=== PATIENT | female | born 1940 | race Caucasian/White ===

== ENCOUNTER 2023-10-03 15:40 | Emergency (ER) | payer MEDICARE, BC, SELFPAY ==
[2023-10-03 15:42] VITALS: BP 174/78
--- NOTE | 2023-10-03 16:16 | ED.GENMED ---
History of Present Illness
General
Chief Complaint: Head Injury
Source: patient
Exam Limitations: none
Time Seen by Provider: 10/03/23 16:01
History of Present Illness
History of Present Illness:
Patient had the trunk of a car fall and hit her head yesterday. Occurred about 1 PM. No LOC. Some mild bleeding. Last tetanus is less than 5. Patient realized that being on Eliquis she should be checked and presents today for evaluation. No
general headache no nausea or vomiting no neck pain no other
Past History
Past History
ED Past Medical History: Arrthythmia and HTN
ED Past Surgical History: Cholecystectomy, and Other (Splenectomy. Hernia)
Review of Systems
Review of Systems
All Other Systems: Not applicable
Neurological: Denies dizzy, headache, weakness or numbness
Phy Exam
Physical Exam
Physical Exam:
GENERAL: Alert and oriented in no apparent distress. 2 cm scalp laceration at the top of her head. Well scabbed and well-healing. No open wound. No drainage
EYE: Orbits normal.
NECK: Supple, nontender
ENT: TMs clear no blood
LUNGS: No respiratory distress
NEUROLOGICAL: Alert and oriented , grossly non-focal
SKIN: Warm and dry
PSYCH: Normal and appropriate interaction.
Course
Orders/Labs/Results
Orders:
Orders
10/03/23 15:47
CT Head W/o Iv Contrast Urgent
Comment: item fell on top of head, pt on eliquis
Reason For Exam: head injury to top of head
Vital Signs
Initial and Last Documented VS:
Initial Vital Signs
Temp Pulse Resp BP Pulse Ox
98.6 F 63 18 174/78 96
10/03/23 15:42 10/03/23 15:42 10/03/23 15:42 10/03/23 15:42 10/03/23 15:42
Last Documented Vital Signs
Temp Pulse Resp BP Pulse Ox
98.6 F 63 18 174/78 96
10/03/23 15:42 10/03/23 15:42 10/03/23 15:42 10/03/23 15:42 10/03/23 15:42
*Radiology
Radiology exam reviewed: preliminary read by ED provider (Negative CT) and radiology read reviewed (Negative CT)
*Pulse Oximetry
Patient hypoxic: no
*Critical Care Note
Total Time (30-74mins, 75-104mins- exclusive of procedures): Not Applicable
ED Attending Note
-
Portions of this chart may have been created with voice recognition software.� Occasional wrong word or��sound alike� substitutions may have occurred due to the inherent limitations of voice recognition software.
Discharge Plan
Departure
Patient Disposition: Home (Routine Discharge)
Date of Disposition: 10/03/23
Time of Disposition: 16:38
Patient with high blood pressure during this ER visit?: Yes
Discharge Problem:
Head injury/anticoagulated, Scalp laceration
Instructions: Head Injury in Adults (DC), Wound Care ED, BLOOD PRESSURE
Prescriptions:
No Action
lisinopril 10 MG tablet
10 mg PO DAILY
metoprolol tartrate 50 MG tablet
50 mg PO BID
digoxin 0.125 MG tablet
0.125 mg PO DAILY
aspirin 81 MG tablet,delayed release (DR/EC)
81 mg PO DAILY
[id number] serr [Osteo Bi-Flex (5-Loxin)] 1 EACH tablet
1 tab PO DAILY
multivitamin with folic acid [Tab-A-Emma] 1 TABLET tablet
1 tab PO DAILY
doxycycline hyclate 100 MG capsule
100 mg PO Q12 10 Days Qty: 20 0RF
cephalexin 500 MG capsule
1,000 mg PO QID 10 Days Qty: 80 0RF
acetaminophen 325 MG tablet
650 mg PO Q6HPRN PRN (Reason: mild/leg pain/WILDER/temp> 100.4F) Qty: 90 0RF
tramadol 50 MG tablet
25 mg PO Q6HPRN PRN (Reason: moderate pain) Qty: 10 0RF
metformin 500 MG tablet
500 mg PO DAILY Qty: 30 0RF
Referrals:
[facility] [Family Provider] - Follow up in 2-3 days
Interventions
Interventions:
*General Assessment Last Done: 10/03/23 15:42
*Neglect/Abuse Screening Last Done: 10/03/23 15:42
*Nursing Disposition Last Done: 10/03/23 16:51
ED- Neurological Assessment Last Done: 10/03/23 16:45
ED-Skin Assessment Last Done: 10/03/23 16:45
Discharge Date and Time
Discharge Date/Time: 10/03/23 16:52
Print Language: KINYARWANDA
== END 2023-10-03 16:52 | disposition home or self-care (01) ==
LOC: EMR 15:40
PROVIDERS: EMERGENCY PHYSICIAN Emergency Medicine; FAMILY PHYSICIAN Physician Assistant
DX: S09.90XA Unspecified injury of head, initial encounter (principal); S01.01XA Laceration without foreign body of scalp, initial encounter; W19.XXXA Unspecified fall, initial encounter; I10 Essential (primary) hypertension; Z79.01 Long term (current) use of anticoagulants; Z90.49 Acquired absence of other specified parts of digestive tract
CPT/HCPCS: 99284; 70450

== ENCOUNTER 2024-01-13 23:09 | Emergency (ER) | payer MEDICARE, BC, SELFPAY ==
[2024-01-13 23:17] VITALS: BP 186/92
[2024-01-13 23:33] VITALS: BMI 37.6
--- NOTE | 2024-01-13 23:35 | EDRN ---
Pt had nail removed from R great toe yesterday and was started on amoxicillin. Pt notes redness above her ankles that 'feels like a bad sunburn.' Pt has had 3 total doses of amoxicillin. Pt noted redness around 1930 this evening. Redness is not
itchy. No fever/chills, sob, vomiting, diarrhea, throat swelling. Pt says she read 'Dr Lara' and read about all the symptoms she does not have (sob, throat closing, vomiting, diarrhea) and decided she should come in to be evaluated. Pt denies
applying new lotions, socks - has been wearing flip flops.
--- NOTE | 2024-01-13 23:43 | ED.GENMED ---
History of Present Illness
General
Chief Complaint: Allergic Reaction
Source: patient
Time Seen by Provider: 01/13/24 23:34
History of Present Illness
History of Present Illness:
83yoF with a history of atrial fibrillation and prediabetes presenting for concern for possible allergic reaction. Patient was seen [facility] yesterday for a nail infection of the right great toe. The toenail was removed and she was
started on a course of amoxicillin. She has had 3 doses thus far. She started to notice redness of her bilateral lower legs around 7:30pm this evening and became worried that she may be having an allergic reaction. The area feels like sunburn.
She denies any itching to the area. She is otherwise asymptomatic and denies any fevers, chills, shortness of breath, dysphagia, vomiting, diarrhea.
Past History
Past History
ED Past Medical History: Arrthythmia and HTN
ED Past Surgical History: Cholecystectomy, and Other (Splenectomy. Hernia)
Phy Exam
General Physical Exam
General Presentation: well appearing and no apparent distress
General age: appears stated age
General Skin: warm and dry
General Habitus: normal
General Mental: alert
ENT Exam
ENT Exam: pharynx normal and other (No oropharyngeal swelling. Normal phonation. Tolerating oral secretions without difficulty. )
Pulmonary Exam
Pulmonary Exam: lungs clear, no respiratory distress, no crackles and no wheezing
Neurological Exam
Neurological Exam: alert
[place] Coma Scale
Eye Opening: Spontaneous
Verbal Response: Oriented
Motor Response: Obeys Commands
GCS Total Score: 15
Skin Exam
Skin Exam: other (Erythema and warmth localized above the ankles bilaterally. Varicosities noted with evidence of venous stasis. 2+ DP pulses bilaterally. )
Psychiatric Exam
Psychiatric Exam: normal mood/affect
Course
Vital Signs
Initial and Last Documented VS:
Initial Vital Signs
Temp Pulse Resp BP Pulse Ox
98.2 F 86 20 186/92 98
01/13/24 23:17 01/13/24 23:17 01/13/24 23:17 01/13/24 23:17 01/13/24 23:17
Last Documented Vital Signs
Temp Pulse Resp BP Pulse Ox
98.2 F 72 16 148/69 95
01/13/24 23:17 01/14/24 00:00 01/13/24 23:45 01/14/24 00:00 01/14/24 00:00
MDM/Problems Addressed
Differential Diagnosis Includes:
83yoF here for concern for possible allergic reaction. Started on amoxicillin yesterday. Noticed redness to her bilateral lower legs this evening. She denies any itchiness. No SOB, vomiting, diarrhea. She is hypertensive with otherwise normal vital
signs. There is erythema and warmth localized above the ankles bilaterally with varicosities noted to both legs. No urticaria or other rash seen. Remainder of exam is reassuring. There is no clinical findings to suggest allergic reaction. Suspect
symptoms are related to venous stasis changes. Very low clinical suspicion of bilateral cellulitis.
Patient provided with reassurance and she was advised to continue taking amoxicillin. Advised leg elevation to help with venous stasis. She was advised to monitor the area and f/u with PCP. ED return precautions discussed. She expressed
understanding and is agreeable to plan. She was discharged in stable condition.
*Critical Care Note
Total Time (30-74mins, 75-104mins- exclusive of procedures): Not Applicable
ED Attending Note
-
Portions of this chart may have been created with voice recognition software.� Occasional wrong word or��sound alike� substitutions may have occurred due to the inherent limitations of voice recognition software.
Discharge Plan
Departure
Patient Disposition: Home (Routine Discharge)
Date of Disposition: 01/13/24
Time of Disposition: 23:53
Patient with high blood pressure during this ER visit?: Yes
Discharge Problem:
Venous stasis of both lower extremities
Instructions: Varicose veins and other vein disease in the legs
Prescriptions:
No Action
lisinopril 10 MG tablet
10 mg PO DAILY
metoprolol tartrate 50 MG tablet
50 mg PO BID
digoxin 0.125 MG tablet
0.125 mg PO DAILY
[id number] serr [Osteo Bi-Flex (5-Loxin)] 1 EACH tablet
1 tab PO DAILY
multivitamin with folic acid [Tab-A-Emma] 1 TABLET tablet
1 tab PO DAILY
metformin 500 MG tablet
500 mg PO DAILY Qty: 30 0RF
acetaminophen [Tylenol Arthritis] 650 mg Tablet Extended Release
650 mg PO BID
Eliquis 5 mg Tablet
5 mg PO BID
Activity Restrictions/Additional Instructions:
Continue taking amoxicillin. Elevate your legs to help with swelling.
Please follow-up with your family doctor. Return to the ER with any worsening symptoms, spreading rash, trouble breathing, trouble swallowing.
Interventions
Interventions:
*Risk Screen - Suicide Last Done: 01/13/24 23:17
*General Assessment Last Done: 01/13/24 23:33
*Neglect/Abuse Screening Last Done: 01/13/24 23:17
*ED COVID-19 Vaccine History Last Done: 01/13/24 23:33
*Nursing Disposition Last Done: 01/14/24 00:10
ED- Pulmonary Assessment Last Done: 01/13/24 23:48
ED-Skin Assessment Last Done: 01/13/24 23:48
Discharge Date and Time
Discharge Date/Time: 01/14/24 00:10
Print Language: ANGUILLAN
[2024-01-13 23:45] VITALS: BP 171/64
[2024-01-14] VITALS: BP 148/69
[2024-01-14 00:04] VITALS: BP 148/69
== END 2024-01-14 00:10 | disposition home or self-care (01) ==
LOC: EMR 23:09
PROVIDERS: EMERGENCY PHYSICIAN Emergency Medicine; FAMILY PHYSICIAN Physician Assistant
DX: I87.8 Other specified disorders of veins (principal); I48.91 Unspecified atrial fibrillation; I10 Essential (primary) hypertension; R73.03 Prediabetes; Z90.49 Acquired absence of other specified parts of digestive tract
CPT/HCPCS: 99282